=== PATIENT | male | born 1995 | race Asian ===

== ENCOUNTER 2017-09-12 16:13 | Emergency (ER) | payer SELFPAY ==
[~2017-09-12] VITALS: Ht 177.8 cm; Wt 65.0 kg
[2017-09-12 16:56] VITALS: BP 133/65
== END 2017-09-12 18:38 | disposition home or self-care (01) ==
LOC: ER 17:04
DX: L03.116 Cellulitis of left lower limb (principal); L02.416 Cutaneous abscess of left lower limb
CPT/HCPCS: 99283